=== PATIENT | male | born 1960 | race Caucasian/White ===

== ENCOUNTER 2017-10-14 11:40 | Emergency (ER) | payer OTHER ==
[2017-10-14 12:07] LABS: ADD MAN DIFF? NO
[2017-10-14 12:11] LABS: WHITE BLOOD COUNT 2.9 10^3/ul (4.8-10.8)
[2017-10-14 12:11] LABS: BASOPHIL # 0.1 10^3/ul (0.0-0.1); BASOPHILS % 1.8 % (0.0-2.0); EOSINOPHILS % 0.7 % (0.0-7.0); LYMPHOCYTES % 34.4 % (15.0-51.0); MEAN CORPUSCULAR HGB CONC 33.3 g/dl (32.0-37.0); MEAN CORPUSCULAR VOLUME 95.9 fl (82.0-101.0); MEAN PLATELET VOLUME 9.9 fl (7.4-10.4); MONOCYTE # 0.3 10^3/ul (0.3-0.9); MONOCYTES % 10.5 % (0.0-11.0); NEUTROPHIL # 1.5 10^3/ul (1.6-7.5); NEUTROPHILS % 52.2 % (39.0-77.0); PLATELET COUNT 108 10^3/UL (140-415); RED BLOOD COUNT 3.44 10^6/ul (4.70-6.10); RED CELL DISTRIBUTION WIDTH 18.4 % (11.5-14.5)
[2017-10-14 12:33] LABS: ALANINE AMINOTRANSFERASE 39 IU/L (13-69); ALBUMIN 4.6 g/dl (3.3-4.9); ALBUMIN/GLOBULIN RATIO 1.35; ALKALINE PHOSPHATASE 83 IU/L (42-121); ANION GAP 23 (8-16); ASPARTATE AMINO TRANSFERASE 70 IU/L (15-46); BILIRUBIN,INDIRECT 0.1 mg/dl (0-1.1); BILIRUBIN,TOTAL 0.1 mg/dl (0.2-1.3); BLOOD UREA NITROGEN 23 mg/dl (7-20); CALCIUM 8.7 mg/dl (8.4-10.2); CARBON DIOXIDE 24 mmol/L (21-31); CHLORIDE 106 mmol/L (97-110); CREATININE 1.04 mg/dl (0.61-1.24); GLUCOSE 78 mg/dl (70-220); POTASSIUM 4.1 mmol/L (3.5-5.1); SODIUM 149 mmol/L (135-144)
== END 2017-10-14 18:10 | disposition left against medical advice (07) ==
LOC: E/R 11:40
DX: R53.83 Other fatigue (principal); F10.929 Alcohol use, unspecified with intoxication, unspecified; E87.0 Hyperosmolality and hypernatremia
CPT/HCPCS: 36415; 80053; 80306; 85025; 99283